=== PATIENT | female | born 1990 | race Caucasian/White ===

== ENCOUNTER → 2020-04-11 06:27 | Outpatient (CLI) | payer BC, SELFPAY ==
--- NOTE | 2020-04-11 06:39 | MRI_ITS ---
STUDY: MRI RIGHT MIDFOOT REASON FOR EXAM: Female, [address] mass plantar right foot,pain TECHNIQUE: Standardized fat and water weighted pulse sequences were obtained in all 3 orthogonal planes. COMPARISON: None. FINDINGS: Normal talonavicular articulation. Normal calcaneocuboid articulation. Normal navicular-cuneiform articulations. Normal intercuneiform articulations. Normal first tarsometatarsal articulation. Normal Lisfranc ligament. Normal second and third tarsometatarsal articulations. Normal cuboid fourth and cuboid fifth tarsometatarsal articulation. Normal first through fifth metatarsi. Normal tibialis anterior tendon. Normal extensor hallucis longus tendon. Normal extensor digitorum longus tendons. Normal peroneus longus tendon and distal insertion. Normal peroneus brevis tendon and distal insertion. Normal intrinsic muscles of the mid and forefoot region. Normal extensor digitorum brevis muscle. 1 cm oval T1 isointense and T2 hyperintense circumscribed mass of the superficial soft tissues of the plantar aspect of the foot laterally with minimal surrounding edema felt to be of dermal rheumatologic origin such as a sebaceous cyst or inflamed callus. MRI/Lower Ext/No Jt/w/o IMPRESSION: 1 cm oval mass of the plantar aspect of the foot felt to represent a sebaceous cyst or inflamed callus. Electronically Signed: Adrian Larios MD at 12:39 EST Tel , Service support ,
== END ==
PROVIDERS: PCP Family Medicine; Referring Provider Podiatrist; Visit Provider Podiatrist
DX: M79.671 Pain in right foot (principal); R22.41 Localized swelling, mass and lump, right lower limb
CPT/HCPCS: 73718

== ENCOUNTER → 2020-05-22 16:59 | Outpatient (CLI) | payer BC, SELFPAY ==
[2020-05-22 18:11] LABS: Absolute Lymphocyte Count 2.36 X10^3/uL (0.83-4.51); Absolute Neutrophil Count 4.3 X10^3/uL (2.0-7.7); Basophil# 0.07 X10^3/uL; Basophil% 0.9 % (0-1); Eosinophil# 0.18 X10^3/uL; Eosinophils% 2.4 % (0-5); Hematocrit 41.5 % (37-47); Hemoglobin 13.8 g/dL (12.0-15.0); Lymphocyte # 2.36 X10^3/ul (4.0); Lymphocyte % 31.3 % (19-41); Mean Corp Hgb Conc 33.3 g/dL (32-36); Mean Corpuscular Hgb 27.7 pg (27.0-32.0); Mean Corpuscular Volume 83.3 fL (81-99); Mean Platelet Vol. 9.3 fl (6.2-12.0); Monocyte# 0.59 X10^3/uL; Monocyte% 7.8 % (0-10); NRBC Flagged by Analyzer 0 % (0-5); Neutrophil # 4.33 X10^3/uL (2.7-7.7); Neutrophil % 57.3 % (47-70); Platelet Count 280 K/mm3 (150-450); RBC Distribution Width CV 12.3 % (11.6-14.6); RBC Distribution Width SD 37.5 fl (35.1-43.9); Red Blood Count 4.98 M/mm3 (4.2-5.4); White Blood Count 7.6 K/mm3 (4.4-11.0)
[2020-05-22 18:46] LABS: ALB/GLOB Ratio 1.1 RATIO (0.9-2.4); AST(SGOT) 41 U/L (15-37); Alanine Aminotransfer ALT/SGPT 63 U/L (13-56); Albumin, Serum 4.2 g/dL (3.2-5.0); Alkaline Phosphatase 53 U/L (45-117); Anion Gap 7 (5-15); BUN 10 mg/dL (7-18); BUN/Creat Ratio 13.3 RATIO (10-20); Calcium,Total 9.5 mg/dL (8.5-10.1); Chloride 105 mmol/L (98-107); Creatinine, Serum 0.75 mg/dL (0.55-1.02); EST Glomerular Filtration Rate 96 mL/min (>60); Est Glom Filt Rate - Afr Amer 116 mL/min (>60); Globulin 3.7 g/dL (2.2-4.2); Glucose 80 mg/dL (74-106); Potassium 4.1 mmol/L (3.5-5.1); Protein, Total 7.9 g/dL (6.4-8.2); Sodium Level 140 mmol/L (136-145)
== END ==
PROVIDERS: PCP Family Medicine; Referring Provider Family Medicine; Visit Provider Family Medicine
DX: Z01.818 Encounter for other preprocedural examination (principal)
CPT/HCPCS: 36415; 80053; 85025

== ENCOUNTER 2020-06-14 07:59 | Day surgery (SDC) | payer BC, SELFPAY ==
[2020-06-14] VITALS (8 sets, daily range): BP systolic 91–132; BP diastolic 5–73; PULSE 53–72; RESP 16; TEMP 36.1–36.4; O2SAT 16–100; BMI 27.1
[2020-06-14 08:35] LABS: Internal QC Validated? YES +Cl - CLEAR BKGD; Pregnancy, Urine Negative Negative
[2020-06-14] MEDS: Lactated Ringers 1,000 ML 100 ML IV (08:36)
[2020-06-14] MEDS: Cefazolin 2 GM in 0.9% Normal Saline 100 ML IV (09:26)
--- NOTE | 2020-06-14 09:30 | TISS_PTH ---
PATIENT: TORI MACIAS [place] [facility] [place][id number] AGE/SX: 30/F ROOM: RE06/14/[address]: Dr. Craig Ballesteros DPM : 1990 BED: DIS: 06/14/2020 SPEC #: [id number] RECD: 06/14/20 10:02 STATUS: JENN REKuldeep #: [id number] ALAN: 06/14/20 09:[address]: Craig Ballesteros DEPT: SURGICAL PATHOLOGY RECD BY: Lili Reich ENTERED: 06/14/20 13:19 SP TYPE: Tissue Bx FANNIE DR: No Primary Care Phys Tissues: TISSUE SURGICALLY REMOVED Procedures: Surgery Specimen Level IV HEADER OPERATION: Excision soft tissue mass, foot PRE-OP DIAGNOSIS: Right foot soft tissue mass TISSUE SUBMITTED: Soft tissue mass right foot MICROSCOPIC DIAGNOSIS Soft tissue mass right foot, excision: Consistent with fibromatosis. SJ:mariano 06/17/2020 COMMENT Case has been reviewed in consultation with Dr. Giles who concurs with the above diagnosis. IDC:AM MICROSCOPIC DESCRIPTION Slides are reviewed. GROSS DESCRIPTION Received in fixative is one container labeled with the patient's name and designated soft tissue mass right foot. The specimen consists of two irregular fragments of pink-fish soft tissue ranging in size from 0.5 to 1.7 cm. The larger fragment is bisected and totally submitted along with the smaller fragment in one cassette. / AM:mariano 06/14/20 TC:5 CPT: 17744
[2020-06-14] MEDS: Bupiv/Epi 0.25% 30 ML Vial (09:44)
--- NOTE | 2020-06-14 10:08 | DCINST_ITS ---
Discharge Diet: Light diet - advance as tolerated Discharge Activity: May Not Drive, Use Crutches Weight Bearing Status: No weight bearing - There is an incision on the bottom of the right foot. No weightbearing on right foot to allow the incision to properly heal. Keep extremity elevated above heart level: Right Leg - Keep right foot elevated with pillows for at least 40-50 minutes Call your doctor if your incision/area has: Continuous Slow Oozing, Sudden I ncreased Bleeding, Foul Smelling Discharge Call your doctor if you observe: Fever of 101 or Higher, Shortness of breath, Chest pain, Calf discomfort, Uncontrolled pain, - Cleanse incision/area with: Do not get Incision Wet, Keep Dressing Clean & Dry, - - It is normal if a small amount of spoting blood develops on the outer layer of the bandage, if it gets the size larger than a tennis ball in diameter, or if there is any other problems or concerns, please call Dr. Ballesteros. Allergies/Adverse Reactions: Allergies No Known Allergies Allergy (Verified 06/14/20 08:21) Medications to take at Discharge Famotidine [Acid Controller] 20 mg PO PRN PRN 06/07/20 Hydrocodone Bitart/Apap 5-325 [[place] 5MG-325MG] 1 tablet PO Q6H PRN PRN 3 Days #12 tablet 06/14/20 The following prescriptions were given: Hydrocodone Bitart/Apap 5-325 [[place] 5MG-325MG] 1 tablet PO Q6H PRN PRN 3 Days #12 tablet PRN Reason: Pain Transmission Status: Sent to [facility] Primary Care Physician: Care Physician,No Primary [Primary Care Provider] - Test Results: Test results from this visit will be discussed in further detail at your follow- up appointment, if applicable. Please Follow Up With: Craig Ballesteros DPM - Call Dr. Ballesteros if needed over weekend: [phone] (cell), or page through [facility] at [phone] When: within 1 week at office ([facility])
--- NOTE | 2020-06-14 10:15 | PCM.OPRPT ---
Report of Operation Date of Procedure: 06/14/20 Pre-Operative Diagnosis: Soft tissue mass right foot Post-Operative Diagnosis: Same Surgery/Procedure Performed:: Excision of soft tissue mass from right foot product support consultant: yes - Dr. Jennifer Fernandez Type of Anesthesia:: Local MAC Specimen's removed: Excised soft tissue mass from right foot sent to pathology. Estimated Blood Loss (mL): 3mL Description of Procedure: Indications: This is a 30 year old female with a soft tissue mass on the plantar aspect of the right foot. She relates she has had this for many years, however relates it is worsening and is painful. She relates it has been getting bigger. Pre operative MRI concerned localized soft tissue mass to the plantar right foot. We discussed the options of nonsurgical and surgical. She would like to have this removed. We discussed this in detail, reviewed the possible benefits vs risks, goals and expectations. She expressed understanding and agreement and elected to proceed forward with the surgical procedure. The consent forms were reviewed with her and she freely signed them. No guarantees were given nor implied. The patient was medically cleared for the procedure. Operative Procedure: The patient was bought back to the operating room and was placed on the operating room table in the supine position. Patient was carefully secured to the operating room table with a safety belt around the waist. A timeout was performed and the patient was proper identified and the surgical plan was confirmed. The patient received 2 grams of IV cefazolin for antibiotic prophylaxis. A well padded pneumatic tourniquet was applied around the right ankle but was never inflated. The patient received MAC anesthesia per the anesthesia team. The skin on the patient's right foot was cleansed with 70% Isopropyl alcohol and a total of 8mL of 0.25% Bupivacaine with 1:200,000 epi was given as a V block around the mass plantar right foot. The right foot was scrubbed, prepped, and draped in the usual aseptic fashion. Further attention was directed to the right foot where there was noted to be a round sized soft tissue mass on the plantar lateral arch of the foot. It was the size of a large marble. A longitudinal curvilinear skin incision was made overlying the mass using a 15 blade. The mass was noted to be directly deep to the skin in the subcutaneous tissue layer. The mass was well defined and was hard, it was whitish and glistening. The mass was carefully freed and dissected from the surrounding subcutaneous tissues using a small dissecting scissor. The mass did not extend beyond the subcutaneous tissue. It was excised and sent to pathology for further evaluation. The site was flushed out with copious amounts of normal saline solution. The remaining tissues were noted to be healthy and viable, all normal in appearance. The skin was reapproximated using 3-0 Nylon. A dressing was applied which consisted of Betadine solution, 4x4 gauze, Kerlix and an bienvenido bandage. CFT < 2 seconds to all toes and normal temperature gradient present with normal pedal pulses were noted at end of the procedure. Hemostasis was achieved prior to bandage application. The patient tolerated the procedure well and the anesthesia well with no complication. The patient was transported from the operating room to the recovery room with vital signs stable and in good condition. Post operative orders were placed. Post operative instructions were reviewed with the patient and her pre operatively, and again with her post operatively. Written instructions were dispensed and well. No weightbearing right foot, keep foot elevated, keep dressing right foot clean, dry and intact. Rx for [place] 5mg/325mg tab - 1 tab PO q 6 hr prn pain provided to help with post operative pain. Follow up with me in 1 week, sooner if needed. Grafts/Implants Used: None - Complications None
[2020-06-14 10:50] LABS: AST(SGOT) 26 U/L (15-37); Alanine Aminotransfer ALT/SGPT 42 U/L (13-56)
== END 2020-06-14 11:52 | disposition home or self-care (01) ==
LOC: SDC 07:59 → AC 08:00
PROVIDERS: Anesthesiology; Referring Provider Podiatrist; Visit Provider Podiatrist
PROC: (CPT 28039; principal; 2020-06-14 09:15)
DX: R22.41 Localized swelling, mass and lump, right lower limb (principal); Z20.828 Contact with and (suspected) exposure to other viral communicable diseases; Z87.891 Personal history of nicotine dependence; K21.9 Gastro-esophageal reflux disease without esophagitis
CPT/HCPCS: 00400; 28039; 81025; 84450; 84460; 87426; 88305; C9803; J7120; J2405

== ENCOUNTER 2021-03-25 21:05 | Inpatient (IN) | payer BC, SELFPAY ==
[2021-03-25 21:09] VITALS: BMI 31.1
[2021-03-25 21:32] VITALS: BP 144/83; PULSE 93
[2021-03-25 21:34] VITALS: PULSE 105; TEMP 36.4; O2SAT 98
[2021-03-25] MEDS: Lactated Ringers 1,000 ML 50 ML IV (21:40)
[2021-03-25 21:51] VITALS: BP 140/80; PULSE 76
[2021-03-25 22:08] LABS: Absolute Lymphocyte Count 2.37 X10^3/uL (0.83-4.51); Absolute Neutrophil Count 6.3 X10^3/uL (2.0-7.7); Basophil# 0.03 X10^3/uL; Basophil% 0.3 % (0-1); Eosinophil# 0.13 X10^3/uL; Eosinophils% 1.3 % (0-5); Hematocrit 34.2 % (37-47); Lymphocyte # 2.37 X10^3/ul (0.83-4.51); Lymphocyte % 24.3 % (19-41); Mean Corp Hgb Conc 32.2 g/dL (32-36); Mean Corpuscular Hgb 24.9 pg (27.0-32.0); Mean Corpuscular Volume 77.4 fL (81-99); Mean Platelet Vol. 9.2 fl (6.2-12.0); Monocyte# 0.88 X10^3/uL; NRBC Flagged by Analyzer 0 % (0-5); Neutrophil # 6.31 X10^3/uL (2.7-7.7); Neutrophil % 64.8 % (47-70); Platelet Count 232 K/mm3 (150-450); RBC Distribution Width CV 13.2 % (11.6-14.6); RBC Distribution Width SD 36.9 fl (35.1-43.9); Red Blood Count 4.42 M/mm3 (4.2-5.4); White Blood Count 9.8 K/mm3 (4.4-11.0)
[2021-03-25 22:52] LABS: AST(SGOT) 35 U/L (15-37); Alanine Aminotransfer ALT/SGPT 23 U/L (13-56); EST Glomerular Filtration Rate 125 mL/min (>60); Est Glom Filt Rate - Afr Amer 151 mL/min (>60); Estimated Creatinine Clearance 107.45 ml/min; Uric Acid 3.3 mg/dL (2.6-6.0)
[2021-03-25 22:57] VITALS: PULSE 79; O2SAT 99
[2021-03-25 23:00] VITALS: BP 135/85; PULSE 85; TEMP 36.6
[2021-03-25 23:42] LABS: Protein, Urine (Random) 21.7 mg/dL (<11.9); Protein:Creat Ratio 181 mg/g CRE (0-200)
[2021-03-25] MEDS: Oxytocin 30 units/NS 500 ml 30 UNITS/500 ML IV.SOLN IV (23:43)
[2021-03-25 23:49] VITALS: BP 124/72; PULSE 80; PULSE 81; TEMP 36.8; O2SAT 97
[2021-03-26] VITALS (60 sets, daily range): BP systolic 108–168; BP diastolic 53–90; PULSE 58–153; TEMP 36.3–37.2; O2SAT 94–100
[2021-03-26] MEDS: Penicillin G 3,000,000 Units 50 ML 100 UNITS IV ×4 (02:13→14:54)
[2021-03-26] MEDS: Acetaminophen 500 MG Tablet PO (04:34)
[2021-03-26] MEDS: Lactated Ringers 500 ML 999 ML IV ×2 (07:10→12:56)
--- NOTE | 2021-03-26 07:56 | HP.PCM.OB_ITS ---
HPI - General General Date of Admission: 03/25/21 HPI Narrative TORI MACIAS, is a 31 F @ 40.5 weeks who presents for elective IOL. pt denies garcia, visual changes. Maternal Data Information Final ELINA: 03/21/21 Gestational age: 40.5 PFSH PFSH Medical History (Updated 03/26/21 @ 07:[address] Michaela Bella MD) Anxiety Home Medications famotidine 40 mg PO PRN PRN 06/07/20 [History Last Taken 03/25/21 19:00] [id number] [] 1 tab PO DAILY 03/25/21 [History Last Taken 03/25/21 07:00] pyridoxine (vitamin B6) [Vitamin B-6] 100 mg PO DAILY 03/25/21 [History Last Taken 03/25/21 07:00] Allergy/AdvReac Type Severity Reaction Status Date / Time No Known Allergies Allergy Verified 03/25/21 21:11 Surgical History (Updated 03/25/21 @ 23:07 by Kelsey Antunez) History of surgery [place] teeth extracted Social History Smoking Status: Former smoker History Elective abortions Hx Para 0 Spontaneous abortions Hx # Term Pregnancies Ectopic pregnancies Hx # Pregnancies Multiple births # of living children NST FHR Rate Baby A Baseline: 140 Variability:: Moderate Accelerations:: 15 x 15 Decelerations:: None NST Reactive:: Yes FHR Category:: Category I Uterine Activity:: q2-4 Vital Signs Vital Signs Vital Signs: 03/25/21 21:32 03/25/21 21:34 03/25/21 21:51 Temperature 97.5 F L Temperature Source Temporal Pulse Rate 93 105 H 76 Blood Pressure 144/83 H 140/80 H BP Systolic 144 140 BP Diastolic 83 80 Pulse Ox 98 03/25/21 22:57 03/25/21 23:00 03/25/21 23:49 Temperature 97.9 F 98.2 F Temperature Source Temporal Temporal Pulse Rate 79 85 80 Blood Pressure 135/85 H 124/72 H BP Systolic 135 124 BP Diastolic 85 72 Pulse Ox 99 97 03/26/21 00:56 03/26/21 01:13 03/26/21 01:52 Temperature 98.0 F 98.1 F Temperature Source Temporal Temporal Pulse Rate 74 58 L Blood Pressure 168/89 H 128/76 H BP Systolic 168 128 BP Diastolic 89 76 Pulse Ox 99 98 03/26/21 01:53 03/26/21 02:56 03/26/21 02:57 Temperature 98.3 F Temperature Source Temporal Pulse Rate 68 69 Blood Pressure 131/79 H 118/68 BP Systolic 131 118 BP Diastolic 79 68 Pulse Ox 99 03/26/21 04:29 03/26/21 05:32 03/26/21 05:33 Temperature 98.1 F 97.9 F Temperature Source Temporal Pulse Rate 86 74 Blood Pressure 143/77 H 142/84 H BP Systolic 143 142 BP Diastolic 77 84 Pulse Ox 98 97 97 03/26/21 06:28 03/26/21 07:18 Temperature 97.9 F 97.3 F L Temperature Source Temporal Pulse Rate 69 75 Blood Pressure 130/76 H 138/85 H BP Systolic 130 138 BP Diastolic 76 85 Pulse Ox 98 99 Weight Weight: 77.292 kg Body Mass Index (BMI) 31.1 Physical Exam Narrative VE; /-2 AROM performed, clear fluid. IUPC placed. Const alert and oriented x3 Labs Labs Labs: Blood Type A POSITIVE Antibody Screen NEGATIVE Hct 34.2 % (37-47) L Hgb 11.0 g/dL (12.0-15.0) L Assessment & Plan (1) 40 weeks gestation of : (2) Positive GBS test: PLAN: Admit to L&D [facility] FHR/TOCO Epidural if requested for pain Monitor VS Anticipate Pitocin pre e labs
[2021-03-26] MEDS: fentaNYL-bupivacaine (epidural) 100 ML BAG EPIDURAL ×2 (08:10→12:31)
[2021-03-26] MEDS: Lactated Ringers 1,000 ML 200 ML IV ×2 (10:08→15:20)
[2021-03-26] MEDS: Ondansetron 4 MG/2 ML Vial IV ×2 (10:22→16:01)
[2021-03-26] MEDS: Mag Hydrox/Al Hydrox/Simeth 30 ML UDC PO (13:20)
[2021-03-26] MEDS: Oxytocin 30 units/NS 500 ml 30 UNITS/500 ML IV.SOLN 334 UNITS IV (18:23)
[2021-03-26] MEDS: Carboprost Tromethamine 250 MCG/ML Ampul IM (18:40)
--- NOTE | 2021-03-26 18:59 | EX.PCM.OBRPT ---
Maternal Data Information Final ELINA: 03/21/21 Final ELINA Source: US <20 weeks Gestational age: 40.6 Vaginal Delivery Maternal Presentation Maternal Presentation: Elective Induction Type of Induction: Pitocin and Amniotomy Operative Information Date of Procedure: 03/26/21 Pre-Operative Diagnosis: elective IOL at 40+ weeks Post-Operative Diagnosis: same, live female Surgery / Procedure Performed: Spontaneous Vaginal Delivery Type of Anesthesia: Epidural Drain: [place] to straight drain Estimated Blood Loss: 800 Time of Delivery: 18:21 Findings Description of Procedure: Called for delivery. Patient was found to be pushing adequately with appreciated. At this time the head was delivered with good maternal pushing efforts. Gentle downward traction was placed and the anterior shoulder was delivered without difficulty followed by the rest infant's body. The infant was then placed on the mother's chest where immediate skin to skin was performed and delayed cord clamping was performed. The cord was then clamped and cut. The placenta was delivered without complication and intact. At this time second-degree perineal laceration was appreciated and repaired with 2-0 Vicryl and 3-0 Rapide suture. Brisk bleeding was noted. At this time retraction was placed and ring clamps were used to grasp the cervix on anterior, lateral and posterior wall. no cervical lacerations were appreciated. brisk bleeding noted from lower segment open sinus. Pitocin was infusing wide open-at this time I called for Hemabate patient has no contraindication. Hemabate was drawn up and 250 mcg were injected directly into the lower uterine segment after aspiration was performed. At this time pressure was held on the lower uterine segment where the open sinus was bleeding. Continued fundal massage was performed. At this time the bleeding has slowed. A second line was initiated prior to this. Bleeding is minimal. All sponges were accounted for, all sharps were accounted for. CBC was drawn. We will repeat a CBC in the morning. Patient tolerated this procedure well. Presentation: Vertex Amniotic Membrane Rupture Type: Artificial Amniotic Fluid Description: Clear Placental Delivery Description: Spontaneous Placenta Disposition: [facility] Specimen(s) Removed: placenta Cord Vessel Description: 3 Vessels Cord Entanglement: None Infant A Gender: Female (1 minute): 8 (5 minute): 9 Delayed Cord Clamping: Yes Post Vaginal Delivery Medications Given After Delivery: IV Pitocin and IM Hemabate Episiotomy Description: None Laceration: Perineal Extension/lac and 2nd degree (repaired with 2-0 vicryl and 3-0 rapide. ) Complication Complications: None Admit VTE Documentation VTE Present on Admission: No VTE Pharm Prophylaxis Ordered: No
[2021-03-26 19:09] LABS: Hematocrit 34.1 % (37-47); Hemoglobin 10.7 g/dL (12.0-15.0); Mean Corp Hgb Conc 31.4 g/dL (32-36); Mean Corpuscular Hgb 24.2 pg (27.0-32.0); Mean Corpuscular Volume 77.1 fL (81-99); Mean Platelet Vol. 8.9 fl (6.2-12.0); Platelet Count 217 K/mm3 (150-450); RBC Distribution Width CV 13.1 % (11.6-14.6); RBC Distribution Width SD 36.1 fl (35.1-43.9); Red Blood Count 4.42 M/mm3 (4.2-5.4); White Blood Count 15.4 K/mm3 (4.4-11.0)
--- NOTE | 2021-03-26 19:37 | NURSING ---
See hemorrhage paperwork on chart for detailed note.
[2021-03-26] MEDS: 0.9% Saline Lock 10 ML Syringe IV (19:57)
--- NOTE | 2021-03-26 21:35 | NURSING ---
bedside report given to Sunitha Zeng RN documented oxytocin times per previous RN Negro Ruby initiated at 334mls/hr at 1823, increased to 999mls/hr per Dr. Funk at 183, decreased to 167mls/hr by Negro Ruby RN at 192, infusion completed at 1955.
[2021-03-27 00:20] VITALS: BP 127/64; PULSE 106; RESP 16; TEMP 36.5
[2021-03-27 04:45] VITALS: BP 119/54; PULSE 94; RESP 16; TEMP 36.4
[2021-03-27 06:36] LABS: Hemoglobin 8.6 g/dL (12.0-15.0); Mean Corp Hgb Conc 31.9 g/dL (32-36); Mean Corpuscular Hgb 24.4 pg (27.0-32.0); Mean Corpuscular Volume 76.5 fL (81-99); Mean Platelet Vol. 8.8 fl (6.2-12.0); Platelet Count 248 K/mm3 (150-450); RBC Distribution Width CV 13.3 % (11.6-14.6); RBC Distribution Width SD 36.9 fl (35.1-43.9); Red Blood Count 3.53 M/mm3 (4.2-5.4); White Blood Count 20.5 K/mm3 (4.4-11.0)
--- NOTE | 2021-03-27 08:08 | PCM.PN.OB ---
Subjective Subjective Patient seen at bedside. Sleeping sound. Breast feeding with support. Ambulating and voiding without difficulty. Denies any headache, dizziness, SOB or CP. Unsure if desires discharge today or tomorrow. Objective Data Objective Data Vital Signs: Vital Signs Temp Pulse Resp BP Pulse Ox 97.5 F L 94 16 119/54 L 100 03/27/21 04:45 03/27/21 04:45 03/27/21 04:45 03/27/21 04:45 03/26/21 21:53 Oxygen Delivery Method Room Air Weight: 170 lb 6.4 oz Body Mass Index (BMI) 31.1 Intake & Output: Intake and Output for Last 24 Hours 03/25/21 03/26/21 03/27/21 23:59 23:59 23:59 Intake Total 133.33 / 133.33 4057.59 / 4057.59 Output Total 2450 / 2450 700 / 700 Balance 133.33 / 133.33 1607.59 / 1607.59 -700 / -700 Lab / Micro Data Result Diagrams: 03/27/21 06:27 03/25/21 22:00 Labs: Laboratory Results - last 24 hr 03/26/21 18:45: WBC 15.4 H, RBC 4.42, Hgb 10.7 L, Hct 34.1 L, MCV 77.1 L, MCH 24.2 L, MCHC 31.4 L, RDW Std Deviation 36.1, RDW Coeff of Deidra 13.1, Plt Count 217, MPV 8.9 03/27/21 06:27: WBC 20.5 H, RBC 3.53 L, Hgb 8.6 L, Hct 27.0 L, MCV 76.5 L, MCH 24.4 L, MCHC 31.9 L, RDW Std Deviation 36.9, RDW Coeff of Deidra 13.3, Plt Count 248, MPV 8.8 ROS Eyes Eyes: Denies blurry vision, change in vision or spots in vision ENT HEENT: Denies dizziness or headache(s) Cardiovascular Cardiovascular: Denies abdominal pain, chest pain or dyspnea Respiratory/Chest Respiratory/Chest: Denies cough, dyspnea, shortness of breath at rest or shortness of breath with exertion Gastrointestinal Gastrointestinal: Denies abdominal pain, diarrhea or vomiting Genitourinary Genitourinary: Denies change in urinary stream, difficulty urinating or dysuria Musculoskeletal Musculoskeletal: Reports none Integumentary Integumentary: Denies rash Neurologic Neurologic: Denies dizziness, headache(s), memory loss or weakness Physical Exam Const alert and no apparent distress General Appearance: cooperative and comfortable Exam Limitations: no limitations HEENT normocephalic Eyes General Eye: normal appearance of both eyes Neck full ROM General: normal visual inspection Chest Chest: symmetrical chest wall rise Resp normal respiratory effort and normal air movement Effort and Inspection: symmetric chest movement Auscultation: clear to auscultation bilaterally Cardio regular rate and regular rhythm GI normal to inspection, nondistended, normoactive bowel sounds Back/Spine normal ROM Extremity full ROM and no calf tenderness General Extremity: normal exam except as noted Skin no rashes or lesions noted Neuro CN's II-XII intact bilaterally Psych mental status grossly normal Assessment & Plan (1) (spontaneous vaginal delivery): (2) Laceration, obstetrical, second degree: (3) Care and examination of lactating mother: PLAN: PPD 1 Routine care support Anticipate discharge home tomorrow morning
[2021-03-27 09:49] VITALS: BP 126/61; PULSE 100; RESP 18; TEMP 36.6
[2021-03-27] MEDS: Acetaminophen 500 MG Tablet 1000 MG PO (10:15)
[2021-03-27 12:49] VITALS: BP 114/57; PULSE 90; RESP 16; TEMP 36.7
[2021-03-27 18:47] VITALS: BP 132/48; PULSE 110; RESP 18; TEMP 36.8
--- NOTE | 2021-03-27 19:09 | PCM.DC ---
Discharge Instructions Diet Discharge Diet: No restrictions Activity May resume sexual activity in: 6-8 weeks Weight Bearing Status: Weight bearing as tolerated Dressing / Incision Call your doctor if you observe: Fever of 101 or Higher, Inability to urinate, Using more than 1 pad per hour, Shortness of breath, Chest pain, Calf discomfort and Uncontrolled pain Follow Up Care When: 2 weeks virtual visit/ 6 weeks in office Test Results: Test results from this visit will be discussed in further detail at your follow-up appointment, if applicable. Discharge Plan Admission Admit Date/Time: 03/25/21 21:05 Primary Reason for Your Visit: Labor and Delivery Attending Provider: Michaela Bella Primary Care Provider: Care Physician,Supriya Primary Discharge Orders/Prescriptions Prescriptions: Continued famotidine 20 MG tablet 40 mg PO PRN PRN (Reason: GERD) RF: 0 [id number]-Tv-FA 1 mg Tablet 1 tab PO DAILY RF: 0 Discontinued pyridoxine (vitamin B6) [Vitamin B-6] 100 mg Tablet 100 mg PO DAILY RF: 0 Referrals / Follow Up: Care Physician,No Primary [Primary Care Provider] - Disposition Disposition (needs filled in before D/C Order can be placed): Home, Self Care
[2021-03-27 19:51] VITALS: BP 123/47; PULSE 97; RESP 18; TEMP 36.8
--- NOTE | 2021-03-27 19:57 | CM.ED ---
SW Note Referral Source: ISELA Johnson Referral Reason: History of Anxiety SW spoke to ISELA Gipson. She said that patient is anxious but not extremely anxious but more related to being a new parent. Patient scored zero on PHQ2. SW met with patient and introduced self. Patient's mother was in the room and patient gave verbal consent to speak to her in the presence of her mother. Mom: Estee Tubbs PNC: [facility] Control: Pill Baby: Preethi Jhaveri : 03/26/20 Apgars: 8/9 Weight: 7# 8 ounces Research Laboratory Technician: Dr. Keiry Mosqueda Breast feeding. Patient reports that breast feeding is going good. MOB's other children: None, this is patient's first child. Housing: Patient resides in a house with her /fob, herself and the nb Transportation: Patient reports access to transportation Supplies: Patient reports she has all nb supplies including carseat, bassinet, crib, clothes and diapers. Supports: Patient said that her is a support. She then said no one else but the patient's mother was in the room with patient. Education Level: Patient graduated high school and has an associates degree. No learning issues. Employment: Patient is employed at [employer]. She plans to take 12 weeks off work. Patient reports she is unsure what arrangements they will make for the nb while she works. Agency Involvement: No JFS, WIC or [facility] involvement. SW offered referred and patient declined. No counseling, legal or CSB history. FOB: Chuck Time Together: 12 years Involved at : Yes Employment: [employer]. Per patient he will take 2 weeks off work. No other children besides nb FOB MH/AOD/Domestic Violence: None Maternal MH History: Patient said that she previously had anxiety but said I am pretty good with it now. Patient said that the anxiety does not impact her life. SW asked what changed and patient said I got older and when SW stated that patient had learned coping skills patient agreed. Patient has never been to counseling or psychiatry. Patient denied any current SI/HI. Patient said that she took medication, Celexa, from age [age]. Patient said that the medication was helpful and she said that she is open to medication if she needs it . Patient said that she distracts herself when anxious by reading a book or cleaning. SW educated patient on shaken baby, PPD and safe sleeping. Patient denied any AOD or cigarette use. SW provided patient with handouts on PPD support and phone support and resources. Patient was also educated on [facility] Behavioral Health. KEMAR updated RN that patient is clear for discharge. Clarissa HENDERSON
== END 2021-03-27 22:15 | disposition home or self-care (01) | DRG 768 ==
PROVIDERS: Obstetrics & Gynecology; Admitting Provider Obstetrics & Gynecology; Visit Provider Obstetrics & Gynecology
DX: O48.0 Post-term pregnancy (principal); Z37.0 Single live birth; O72.1 Other immediate postpartum hemorrhage; O70.1 Second degree perineal laceration during delivery; O99.824 Streptococcus B carrier state complicating childbirth; Z3A.40 40 weeks gestation of pregnancy; Z87.891 Personal history of nicotine dependence
CPT/HCPCS: 59025; 59050; 82565; 82570; 84156; 84450; 84460; 84550; 85025; 85027; 86850; 86900; 86901; 99218; J7120; A4216; G0378; J2405